=== PATIENT | female | born 1970 | race African-American/Black ===

== ENCOUNTER 2022-07-12 00:19 | Day surgery (SDC) | payer OTHER, SELFPAY ==
[2022-06-27 16:08] VITALS: BMI 25.2
[2022-07-12 11:15] VITALS: BP 160/81; PULSE 70; RESP 18; TEMP 36.2; O2SAT 100
[2022-07-12] MEDS: LACTATED RINGERS 1,000 ML 150 ML IV CONT (11:40)
--- NOTE | 2022-07-12 11:48 | P.PNAN_ITS ---
Anes - Initial Pre Proc Eval Procedure: Operation Date: 07/12/22 13:00 Proposed Procedures p Esophagogastroduodenoscopy & Colonoscopy - John Iniguez MD Date/Time: 07/12/22 11:48 Surgeon: John Iniguez MD Pre Op Diagnosis: RADHA Patient Data Age: 52 Gender: F Height: 1.55 m Weight: 57.8 kg Last Vital Signs Temp 36.2 C L 07/12/22 11:15 Pulse 70 07/12/22 11:15 Resp 18 07/12/22 11:15 BP 160/81 H 07/12/22 11:15 Pulse Ox 100 07/12/22 11:15 O2 Del Method Room Air 07/12/22 11:15 Allergies Allergy/AdvReac Type Severity Reaction Status Date / Time No Known Allergies Allergy Verified 07/12/22 11:15 Home Medications Medication Instructions Recorded Confirmed Type ferrous sulfate 325 mg (65 mg 325 mg PO DAILY 06/27/22 06/27/22 History iron) tablet (FeroSul) pantoprazole 40 mg tablet,delayed 40 mg PO DAILY 06/27/22 06/27/22 History release Patient hx anesthesia problems: none Family hx anesthesia problems: none Results Review: All pre-operative results and documents have been reviewed as part of the pre- operative evaluation. [facility] Social History Social History Smoking status: Former smoker Tobacco type: cigarettes Alcohol intake: current Alcohol use details: occasional Substance use type: does not use Living arrangements: with family Spiritual care concerns: No Anes - Eval Final PreProcedure Day of Procedure 07/12/22 11:48 Patient weight: normal Heart: regular rate and rhythm Lungs: clear to auscultation and normal air movement Airway: Mallampati scale class II Neurological: alert and oriented Last oral intake: >/= 8 hours ASA classification: II Emergent: no Anesthetic plan: proceed Anesthesia type and monitoring: general GIVS and standard monitoring Results Review: All pre-operative results and documents have been reviewed as part of the pre- operative evaluation. Informed Consent: The patient's anesthetic plan and its attendant risks and benefits were discussed with the patient/family/POA. Questions were solicited and answers provided to the satisfaction of the patient/family/POA.
--- NOTE | 2022-07-12 12:15 | PM.HPGS ---
History of Present Illness History of Present Illness Consent: Risks, benefits, and alternatives have been discussed and questions answered. Patient agrees to proceed with procedure. Chief complaint: RADHA Narrative: Brianna Clements is a 52 year old female with RADHA for years, hb as low as 4 and received blood transfusion. Had colonoscopy for same reason 2017 without major findings per patient, no EGD. Denies overt gib, she has heavy periods though and she is planning to see her retail service representative Review of Systems Constitutional: Constitutional: Reports fatigue Eyes: Eyes: Denies blurry vision ENT: Reports Normal hearing present, Denies headache(s) and Denies neck pain Cardiovascular: Cardiovascular: Denies chest pain and Denies dyspnea Respiratory: Respiratory: Denies dyspnea Gastrointestinal: Gastrointestinal: Reports no additional gastrointestinal complaints Genitourinary: Genitourinary: Reports abnormal vaginal bleeding and Denies dysuria Musculoskeletal: Musculoskeletal: Denies neck pain Integumentary/Breasts: Skin/Breast: Denies dry skin Neurologic: Reports Normal hearing present, Denies headache(s) and Denies weakness Psychiatric: Psychiatric: Denies anxiety Endocrine: Endocrine: Denies change in body appearance Hematologic/Lymphatic: Hematologic/Lymphatic: Denies easy bleeding Allergic/Immunologic: Allergic/Immunologic: Denies urticaria PMFSH Past Medical History Medical History (Updated 07/12/22 @ 12:17 by John Iniguez MD) Heavy menstrual period Iron deficiency anemia Social History Social History Smoking status: Former smoker Tobacco type: cigarettes Alcohol intake: current Alcohol use details: occasional Substance use type: does not use Living arrangements: with family Spiritual care concerns: No Meds Home Medications and Allergies Home Medications Medication Instructions Recorded Confirmed Type ferrous sulfate 325 mg (65 mg 325 mg PO DAILY 06/27/22 06/27/22 History iron) tablet (FeroSul) pantoprazole 40 mg tablet,delayed 40 mg PO DAILY 06/27/22 06/27/22 History release Allergies Allergy/AdvReac Type Severity Reaction Status Date / Time No Known Allergies Allergy Verified 07/12/22 11:15 Vital Signs Vital Signs - 24 hr 07/12/22 11:15 Temperature 97.2 F L Pulse Rate 70 Respiratory Rate 18 Blood Pressure 160/81 H Pulse Oximetry 100 Oxygen Delivery Room Air Exam Const: General: comfortable and no acute distress HENMT: Face/Nose/Sinus: Normal nares present Eyes: General: appearance normal, both eyes and all related structures Neck: Neck: no JVD Resp: Auscultation: clear to auscultation bilaterally Cardio: Rate: regular rate Rhythm: regular rhythm GI: Inspection: non-distended GI Palp: Yes Soft to palpation Skin: General skin exam: normal color Neuro: General: gait normal Speech: normal speech Extrem: General: normal to inspection Psych: Mental Status: mental status grossly normal Assessment and Plan Assessment and plan (1) Iron deficiency anemia: Code(s): D50.9 - Iron deficiency anemia, unspecified Status: Acute Assessment and Plan: egd and colonoscopy to assess if any gi source to explain anemia (2) Heavy menstrual period: Code(s): N92.0 - Excessive and frequent menstruation with regular cycle Status: Acute Assessment and Plan: wonder if main reason of anemia, will follow-up with retail service representative
[2022-07-12 12:45] VITALS: BP 132/77; PULSE 55; RESP 24; O2SAT 100
--- NOTE | 2022-07-12 12:46 | SUR.OPER ---
EGD START 1225, END 1229 COLONOSCOPY START 1232, END 1243
[2022-07-12 12:55] VITALS: BP 147/81; PULSE 53; RESP 17; O2SAT 100
[2022-07-12 13:05] VITALS: BP 149/80; PULSE 55; RESP 21; O2SAT 100
== END 2022-07-12 13:12 | disposition home or self-care (01) ==
PROVIDERS: PCP Emergency Medicine; Visit Provider Internal Medicine Gastroenterology
PROC: 0DJ08ZZ Inspection of Upper Intestinal Tract, Via Natural or Artificial Opening Endoscopic (ICD-10-PCS; CPT 43235; principal; 2022-07-12 13:00)
DX: Z12.11 Encounter for screening for malignant neoplasm of colon (principal); K64.8 Other hemorrhoids; K29.70 Gastritis, unspecified, without bleeding; D50.9 Iron deficiency anemia, unspecified; N92.0 Excessive and frequent menstruation with regular cycle; Z87.891 Personal history of nicotine dependence
CPT/HCPCS: 45378; 43239; 88305; J2704; J7120